=== PATIENT | male | born 1975 | race Caucasian/White ===

== ENCOUNTER 2022-07-06 05:44 | Inpatient (IN) ==
--- NOTE | 2022-06-26 13:19 | Anesthesiology Consultation ---
Date of Service June 26, 2022 Assessment & Plan (1) Encounter for pre-operative examination: - awaiting UA. - COVID screening: Per assessment on 06/26/2022: Travel screen negative, no known COVID-19 positive contacts or current COVID-19 related symptoms in past 2 weeks. Surgeon arranging preop COVID testing, scheduled 07/05/2022. Awaiting results. Chart Review Chart Review: Pending: Refer to Additional Notes / Consult section and Patient seen in Pre Admission Testing Teaching & Discussion Pre-Anesthesia Teaching/Discussion Notes: Instructed NPO after midnight before surgery, except medications with 15 cc of water. Medication instructions provided according to the PAT guidelines. History Surgery Operation Date: 07/07/22 07:45 Proposed Procedures p L2-S1 Decompression Fusion, Spinal Cord Monitoring - Marvin Reeder DO Height/Weight Height: 5 ft 9 in Weight: 110.4 kg Allergies Allergy/AdvReac Type Severity Reaction Status Date / Time No Known Allergies Allergy Verified 06/08/22 08:04 Medications Home Medications Medication Instructions Recorded Confirmed Last Taken No Known Home Medications 06/08/22 06/08/22 Unknown Past Medical History Medical History Back pain DDD (degenerative disc disease) Obesity (BMI 30.0-34.9) Sleep apnea noncompliant with CPAP Patient denies h/o stroke, seizures, heart attack, heart failure, DM, HTN, blood clots or blood transfusions. Exercise / Class Metabolic Activity II 4-5 Yardwork/Stairs/Walk up hill (denies CP or SOB with 1 FOS) Past Family History Family History Other No family history of adverse response to anesthesia Past Surgical History Surgical History History of shoulder surgery Rt History of wisdom tooth extraction Past Anesthesia History No Hx of Anesthesia Complications and No Family Hx of Anesthesia Complications History of PONV No Hx of PONV and No Hx of Motion Sickness Social History Smoking Status: Never smoker Do You Dip or Chew Tobacco: Yes (1 can every 2-3 days-advised) Hx Alcohol Use: Yes Alcohol type: beer alcohol intake frequency: a few times a week Hx Substance Use: No substance use type: does not use Review of Systems Occ reflux, denies change or worsening. Patient denies chest pain, shortness of breath, dyspnea on exertion, fever, chills, cough, wheezing, or palpitations. Physical Exam Vital Signs Vitals BP 132/86 P 70 TEMP 98.4 SP02 99% on RA RESP 18 Physical Full cervical extension range of motion without pain TMD 3.5 finger breadths Mallampati Score 2 Dentition: intact, front upper chipped tooth; denies loose teeth, implants or bridges, caps/crowns Lungs: normal respiratory effort. Clear throughout to auscultation, no adventitious breath sounds Cardiac: regular rate and rhythm, no murmurs noted Carotid arteries: negative bruit bilat Lab Results Anesthesia Preop Results Results Anesthesia Widget: WBC 7.91 K/ul (4.8-10.8) 06/26/22 Hgb 15.6 g/dl (14.0-18.0) 06/26/22 Hct 45.8 % (40.1-51.0) 06/26/22 Plt 204 K/uL (130-400) 06/26/22 Na 139 mmol/L (136-145) 06/26/22 K 4.8 mmol/L (3.5-5.1) 06/26/22 Cl 104 mmol/L (98-107) 06/26/22 CO2 30 mmol/L (21-32) 06/26/22 BUN 17 mg/dl (6-23) 06/26/22 Creat 1.22 mg/dl (0.6-1.4) 06/26/22 Glucose Level 93 mg/dl (70-99(Fasting)) 06/26/22 PT 10.3 Seconds (9.0-12.0) 06/26/22 PTT 26.6 Seconds (21.0-31.0) 06/26/22 INR 1.0 (0.9-1.1) 06/26/22 Blood Type O Positive 06/26/22 Antibody Screen NEGATIVE 06/26/22 Testing Electrocardiogram Date: 06/26/22 NSR, rate 64 bpm Chest X-Ray Date: 06/26/22 No lines and tubes are seen. The cardiomediastinal silhouette is normal. The lungs are clear. No evidence of pleural effusion or pneumothorax. IMPRESSION: No acute chest disease. Echocardiogram Date: 10/16/17 EF 70% Mild cLVH Normal LV wall motion No significant valvular abnormalities Stress Test Date: 10/16/17 Exercise MPHR 62% METS 6 No ischemia, cannot be ruled out at higher HRs
[2022-07-06] MEDS ORDERED: ACETAMINOPHEN 500 MG TAB PO SCH (06:00)
[2022-07-06] MEDS ORDERED: GABAPENTIN 900 MG DOSE PO SCH (06:00)
[2022-07-06] MEDS ORDERED: LR 500ML BOLUS, THEN 15ML/HR IV SCH (06:00)
[2022-07-06] MEDS ORDERED: ceFAZolin 2000MG 2,000 MG/15 ML SYR IV SCH (06:00)
[2022-07-06] MEDS ORDERED: CeleBREX 200 MG CAP PO SCH (06:00)
[2022-07-06] MEDS ORDERED: ATROPINE SULFATE 0.1 MG/ML 10ML SYR IV PRN (06:47)
[2022-07-06] MEDS ORDERED: ePHEDrine sulfate 50 MG/ML AMP IV PRN (06:47)
[2022-07-06] MEDS ORDERED: ONDANSETRON INJ 2 MG/ML 2 ML VIAL IV PRN (06:47)
[2022-07-06] MEDS ORDERED: HYDROmorphone INJ 2 MG/ML SYR/VIAL IV PRN (06:47)
[2022-07-06] MEDS ORDERED: DEXAMETHASONE SOD INJ 4 MG/ML VIAL ONE (07:06)
[2022-07-06] MEDS ORDERED: KETAMINE 50 MG/5 ML SYRINGE ONE (07:06)
[2022-07-06] MEDS ORDERED: fentaNYL citrate 100 MCG/2 ML VIAL ONE (07:06)
[2022-07-06] MEDS ORDERED: ROCURONIUM BROMIDE 10 MG/ML 5 ML VIAL IV ONE ×9 (07:06→08:45)
[2022-07-06] MEDS ORDERED: ONDANSETRON INJ 2 MG/ML 2 ML VIAL ONE (07:06)
[2022-07-06] MEDS ORDERED: LIDOCAINE 2% MPF LOCAL 5 ML VIAL INFIL ONE (07:06)
[2022-07-06] MEDS ORDERED: PROPOFOL IV EMULSION 10 MG/ML 20 ML VIAL IV ONE (07:06)
[2022-07-06] MEDS ORDERED: MIDAZOLAM HCL 1 MG/ML 2ML VIAL ONE (07:06)
[2022-07-06] MEDS ORDERED: REMIFENTANIL HCL 1 MG VIAL ONE (07:09)
[2022-07-06] MEDS ORDERED: ceFAZolin 330 MG/ML 1 GM VIAL ONE (07:12)
[2022-07-06] MEDS ORDERED: BUPIVACAINE/EPINEPHRINE 0.25% 1:200,000 30 ML VIAL ONE (07:12)
[2022-07-06] MEDS ORDERED: GLYCOPYRROLATE 0.2 MG/ML VIAL ONE ×2 (07:16→10:49)
--- NOTE | 2022-07-06 07:30 | History & Physical Bridge Note ---
Date of Service July 06, 2022 History & Physical Bridge Note I have examined the patient, reviewed the History & Physical and in the interval since the performance of the History & Physical I have noted the following changes of clinical significance: no changes noted
--- NOTE | 2022-07-06 07:31 | History & Physical Report ---
Date of Service July 06, 2022 Assessment & Plan (1) Neurogenic claudication due to lumbar spinal stenosis: Plan: L2-S1 decompression and fusion History of Present Illness Chief Complaint: Back and bilateral leg pain Primary Care Provider: Kaye Rosales MD This is a 46-year-old male who presents with back and bilateral leg pain after failing course of nonoperative care is here for surgical invention. Allergies Allergy/AdvReac Type Severity Reaction Status Date / Time No Known Allergies Allergy Verified 07/06/22 06:03 Home Medications Medication Instructions Recorded Confirmed Type No Known Home Medications 06/08/22 06/30/22 History Past Med/Surg History Medical History Back pain DDD (degenerative disc disease) Obesity (BMI 30.0-34.9) Sleep apnea noncompliant with CPAP Surgical History History of shoulder surgery Rt History of wisdom tooth extraction Family History Other No family history of adverse response to anesthesia Social History Smoking Status: Never smoker Second Hand Exposure: Yes; Do You Dip or Chew Tobacco: Yes (1 can every 2-3 days-advised); Tobacco Cessation Education Requested by Patient: No Hx Alcohol Use: Yes Alcohol type: beer Hx Substance Use: No Preferred Language: Samoan Communication Ability: Effective Customer Facilities Supervisor Required: No Beliefs That Will Affect Care: None Current Living Situation: Spouse Feels Safe at Home: Yes Safety Concerns: Feels Safe At This Time Assistive Devices: None Physical Exam Physical Exam: Patient is alert and oriented Heart regular rhythm Lungs clear Results & Data Results & Data ([facility]) Vital Signs (Past 12 Hours) Vital Signs Temp Pulse Resp BP Pulse Ox O2 Del Method 07/06/22 06:11 36.8 C 65 20 152/87 H 98 Room Air
[2022-07-06] MEDS ORDERED: ePHEDrine sulfate 50 MG/ML AMP ONE (08:57)
[2022-07-06] MEDS ORDERED: NEOSTIGMINE METHYLSULFATE 1 MG/ML 10ML VIAL ONE (10:49)
[2022-07-06] MEDS ORDERED: FLOSEAL HEMOSTATIC MATRIX 10ML TOP ONE (11:04)
--- NOTE | 2022-07-06 11:24 | Operative Report ---
Post Operative Report Pre & Post Diagnosis Operation Date: 07/06/22 07:45 Pre-Op Diagnosis: Neurogenic claudication due to lumbar spinal stenosis Post-Op Diagnosis: Neurogenic claudication due to lumbar spinal stenosis I identified the patient and participated in the time-out.: Yes Procedure Operation Date: 07/06/22 07:45 Actual Procedures #1 lumbar decompression bilateral medial facetectomies and foraminotomies L2-L3, L3-L4, L4-L5 and L5-S1. #2 posterior spinal fusion L2-S1. #3 placed posterior segmental instrumentation L2-S1. #4 interbody fusion L3-L4 L4-5 per #5 placement of Spira 11 x 26 mm cage at L3-L4 and 13 x 26 mm cage at L4-5. #6 placement locally harvested morselized autograft in the posterior gutters. #7 placement of I factor in the interbody space and combined with V toss in the posterior gutters. Surgeon Marvin Reeder, DO Cryptographer None Estimated Blood Loss 400 Findings See Below The patient is 5 foot 9 weighing over 110 kg with a BMI in excess of 35. Patient's body habitus did contribute to significant technical difficulty requiring her deepest retractors longer instruments in order to perform his procedure. This had at least 50% increased operative time. Specimens None Indications This is a 46-year-old male who presents above-mentioned diagnosis after failed course of nonoperative care is here for surgical invention. Description of Procedure Patient was met with identified informed consent obtained. Patient was then taken to the operative suite underwent a patient placed in a prone position on the Miguelito table atop the Ramon frame. All bony prominences well-padded eyes inspected to ensure no external pressure placed upon the. This point lumbar spine was prepped and draped in normal sterile fashion. Sharp dissection with the assistance of Bovie cautery was performed down to and exposing the lamina and transverse processes of L3-L4-L5 and the sacral ala bilaterally. From caudal to cephalad fashion complete laminectomy of L5 L4 L3 and L2 was performed including bilateral medial facetectomies and foraminotomies addressing severe spinal stenosis. Pedicle screws then placed L2 L3-L4-L5 and S1 levels bilaterally with assistance of fluoroscopy. By way of a transforaminal approach on the right pleat discectomy of L4-L5 was performed endplates curetted to subcortical bleeding bone and a 13 x 26 mm spiral cage filled with I factor tapped in position. Then proceeded to L2-L3 and again by way of a transfemoral approach and right complete discectomy performed endplates curetted to subcortically bone and a 11 x 26 mm spiral cage filled I factor tapped in position. The rods were then locked in final position bilaterally. The transverse processes of L2-L3 L4-5 and sacral ala burred to subcortical bleeding bone. I factor combined with V toss and locally harvested morselized autograft was then placed in the posterior gutters. 15 round TAJ drain inserted. The incision was then closed with 1 Vicryl the fascia 2-0 Vicryl subcutaneously and 4 Monocryl for final skin closure. Steri-Strip sterile dressings placed. Patient waken taken PACU stable condition. Please note spinal cord monitoring was utilized at the procedure no changes noted. I attest to the content of the Intraoperative Record and any orders documented therein. Any exceptions are noted below.
[2022-07-06] MEDS: fentaNYL citrate 100 MCG/2 ML VIAL IV PRN ×3 (11:44→12:09)
--- NOTE | 2022-07-06 12:09 | Fluoroscopy Report ---
FL lumbar spine 2-3V HISTORY: 46 years-old Male L2-S1 DECOMPRESSION AND FUSION WITH INTERBODY COMPARISON: None TECHNIQUE: 4 spot fluoroscopic views of the lumbar spine were obtained utilizing 47.8 seconds fluoros copy done FINDINGS: Laminectomy with posterior interbody connie and screw fusion hardware is noted extending from L2-S1. Dis cectomy changes at L3-L4, L4-L5 and L5-S1. The hardware appears to be intact. Satisfactory alignment. No unexpected opaque foreign bodies. IMPRESSION: Fluoroscopic assistance as above. ACT 112: Negative or not required by law. The above report was generated using voice recognition software. It may contain grammatical, syntax o r spelling errors. Electronically signed by: Rich Chavez M.D. 07/06/2022 12:07 PM
--- NOTE | 2022-07-06 12:45 | Anesthesiology Progress Note ---
Date of Service July 06, 2022 Anesthesia Post Procedure Vital Signs Vital Signs: Temp Pulse Pulse Resp BP Pulse Ox O2 Del Method 07/06/22 12:30 98.4 F 61 16 124/80 96 Nasal Cannula 07/06/22 12:20 97.9 F 65 16 126/77 95 Nasal Cannula 07/06/22 12:10 66 17 139/79 93 Nasal Cannula 07/06/22 12:00 66 15 128/77 92 Room Air 07/06/22 11:50 74 16 120/85 95 Room Air 07/06/22 11:40 54 L 16 119/63 94 Oxymask 07/06/22 11:33 99.1 F 64 15 118/71 97 Oxymask 07/06/22 06:11 98.2 F 65 20 152/87 H 98 Room Air O2 Flow Rate 07/06/22 12:30 3 07/06/22 12:20 3 07/06/22 12:10 3 07/06/22 12:00 07/06/22 11:50 07/06/22 11:40 11 07/06/22 11:33 11 07/06/22 06:11 Pain Intensity Lower Back: Pain Intensity: 4 Transfer of Care Handoff Completed per policy Notes Mental Status: alert / awake / arousable and participated in evaluation Patient Amnestic to Procedure: Yes Nausea / Vomiting: adequately controlled Pain: adequately controlled Airway Patency, RR, SpO2: stable & adequate BP & HR: stable & adequate Hydration State: stable & adequate Anesthetic Complications: no major complications apparent and Pt Satisfied with anesthetic care
[2022-07-06] MEDS ORDERED: LORazepam 0.5 MG TAB PO PRN (12:51)
[2022-07-06] MEDS ORDERED: bisacodyL 10 MG SUPP PR PRN (12:51)
[2022-07-06] MEDS ORDERED: ACETAMINOPHEN 1,000 MG/100 ML VIAL IV PRN (12:51)
[2022-07-06] MEDS ORDERED: PROMETHAZINE HCL 12.5 MG in SODIUM CHLORIDE 0.9% 50 ML IV PRN (12:51)
[2022-07-06] MEDS ORDERED: METOCLOPRAMIDE HCL INJ 5 MG/ML 2 ML VIAL IV PRN (12:51)
[2022-07-06] MEDS ORDERED: diphenhydrAMINE Capsule 25 MG CAP PO PRN (12:51)
[2022-07-06] MEDS ORDERED: hydrOXYzine HCl 25 MG TAB PO PRN (12:51)
[2022-07-06] MEDS ORDERED: HYDROmorphone INJ 0.5 MG/0.5 ML SYR IV PRN (12:51)
[2022-07-06] MEDS ORDERED: LORazepam 0.5 MG in SYRINGE 0.25 ML IV PRN (12:51)
[2022-07-06] MEDS ORDERED: HYDROmorphone INJ 1 MG/ML SYRINGE IV PRN (12:51)
[2022-07-06] MEDS ORDERED: MAGNESIUM HYDROXIDE SUSP 30 ML UDC PO PRN (12:51)
[2022-07-06] MEDS ORDERED: NALOXONE HCL 0.4 MG/1 ML VIAL/CARP IV PRN (12:51)
[2022-07-06] MEDS ORDERED: SOD PHOSPHATE/SOD BIPHOSPHATE ENEMA 132 ML BTL PR PRN (12:51)
[2022-07-06] MEDS ORDERED: ALUMINUM/MAGNESIUM SUSP 30 ML UDC PO PRN (12:51)
[2022-07-06] MEDS ORDERED: ONDANSETRON 4 MG OD TAB PO PRN (12:51)
[2022-07-06] MEDS ORDERED: FAMOTIDINE 20 MG TAB PO PRN (12:51)
[2022-07-06] MEDS: LACTATED RINGER'S 1,000 ML IV SCH ×2 (13:31→20:18)
[2022-07-06] MEDS: ceFAZolin 2000MG 2,000 MG/15 ML SYR IV SCH (17:28)
[2022-07-06] MEDS: oxyCODONE HCL IR 5 MG TAB (IMMEDIATE RELEASE) PO PRN (17:30)
[2022-07-06] MEDS: traMADol HCL 50 MG TABLET PO PRN (21:15)
[2022-07-06] MEDS: DOCUSATE SODIUM/SENNA 50/8.6MG TAB PO SCH (21:15)
[2022-07-07] MEDS: ceFAZolin 2000MG 2,000 MG/15 ML SYR IV SCH (01:43)
[2022-07-07] MEDS: LACTATED RINGER'S 1,000 ML IV SCH (02:39)
[2022-07-07] MEDS: oxyCODONE HCL IR 5 MG TAB (IMMEDIATE RELEASE) PO PRN ×2 (02:44→09:18)
[2022-07-07] MEDS: POLYETHYLENE (MIRALAX) 17 GM PACK PO SCH ×3 (05:39→17:27)
[2022-07-07] MEDS: traMADol HCL 50 MG TABLET PO PRN ×2 (05:49→12:25)
[2022-07-07 06:28] LABS: Basophils # (auto) 0.02 K/uL (0-0.2); Basophils % (auto) 0.1 %; Hematocrit (blood only) 37.7 % (40.1-51.0); Hemoglobin 12.5 g/dl (14.0-18.0); Immature Granulocytes # (auto) 0.12 K/uL (0.00-0.02); Immature Granulocytes % (auto) 0.7 %; Lymphocytes # (auto) 1.24 K/uL (1.2-3.4); Mean Corpuscular Hemoglobin 30.3 pg (25.0-34.0); Mean Corpuscular Hgb Conc 33.2 g/dL (32.0-36.0); Mean Corpuscular Volume 91.5 fL (80.0-100.0); Mean Platelet Volume 8.3 fL (9.4-12.4); Monocytes # (auto) 1.19 K/uL (0.24-0.82); Monocytes % (auto) 6.8 %; Neutrophils # (auto) 15.02 K/uL (1.4-6.5); Neutrophils % (auto) 85.4 %; Platelet Count 211 K/uL (130-400); RDW Coefficient of Variation 13.1 % (11.5-14.5); RDW Standard Deviation 43.2 fL (36.4-46.3); Red Blood Count 4.12 M/uL (4.63-6.08); White Blood Count 17.59 K/ul (4.8-10.8)
[2022-07-07 07:16] LABS: BUN Creatinine Ratio 15.2 (10-20); Calcium 8.6 mg/dl (8.5-10.1); Est GFR (African American) 92.1 ml/min; Est GFR (Non-African American) 79.5 ml/min; Potassium 4.3 mmol/L (3.5-5.1)
--- NOTE | 2022-07-07 08:08 | Orthopedic Progress Note ---
Date of Service July 07, 2022 Assessment & Plan (1) Neurogenic claudication due to lumbar spinal stenosis: Plan: At this time I have removed his drain and change his dressing. We will maintain bedrest he may sit up to eat today. He has bathroom privileges if he has a bowel movement. We will assess his progress tomorrow most likely initiate physical therapy if he is stable. Again ongoing with slow progress to activity in light of the very patulous dura at the 5 1 level. Admission and Anticipated Discharge Date Admission Date: July 06, 2022 Subjective Back pain is controlled leg pain improved. Denies any nausea or vomiting or headaches. Physical Exam Physical Exam: On exam he has good strength testing appears comfortable. Results & Data ([facility]) Vital Signs (Past 12 Hours) Vital Signs Temp Pulse Resp BP Pulse Ox O2 Del Method 07/07/22 07:14 36.4 C L 62 14 119/68 97 Room Air 07/07/22 03:15 36.3 C L 56 L 16 128/74 95 Room Air 07/06/22 22:44 36.6 C 63 16 129/71 94 Room Air
[2022-07-07] MEDS: dexAMETHasone 6 MG in SYRINGE 0 ML IV SCH (09:13)
[2022-07-07] MEDS: ACETAMINOPHEN 500 MG TAB PO PRN (12:25)
[2022-07-07] MEDS: DOCUSATE SODIUM/SENNA 50/8.6MG TAB PO SCH (19:58)
[2022-07-07] MEDS: ONDANSETRON INJ 2 MG/ML 2 ML VIAL IV PRN (22:31)
[2022-07-08] MEDS: SODIUM CHLORIDE 0.9% 1000ML 1,000 ML IV SCH ×6 (02:00→22:58)
[2022-07-08] MEDS: dexAMETHasone 6 MG in SYRINGE 0 ML IV SCH (08:12)
--- NOTE | 2022-07-08 08:21 | Orthopedic Progress Note ---
Date of Service July 08, 2022 Assessment & Plan (1) Neurogenic claudication due to lumbar spinal stenosis: Plan: At this time we will initiate physical therapy discontinue his Turk. We will put him on a clear liquid diet for now advance as tolerated. Admission and Anticipated Discharge Date Admission Date: July 06, 2022 Subjective Patient did have a bowel movement this morning. He states his abdominal cramping has somewhat improved. Notes positive flatus. Denies any headaches leg pain. He states his back pain is well controlled. He is ambulating with a walker around the room comfortably. Physical Exam Physical Exam: On exam he is standing and walking with a walker. His dressing is intact. There is no notable swelling in the lumbar spine. Is nontender to palpation. Results & Data ([facility]) Vital Signs (Past 12 Hours) Vital Signs Temp Pulse Resp BP Pulse Ox O2 Del Method 07/08/22 00:04 36.6 C 67 18 161/89 H 96 Room Air
[2022-07-08] MEDS: oxyCODONE HCL IR 5 MG TAB (IMMEDIATE RELEASE) PO PRN (14:28)
[2022-07-08] MEDS: ONDANSETRON INJ 2 MG/ML 2 ML VIAL IV PRN (20:58)
[2022-07-08] MEDS: DOCUSATE SODIUM/SENNA 50/8.6MG TAB PO SCH (20:58)
[2022-07-08] MEDS: traMADol HCL 50 MG TABLET PO PRN (22:58)
[2022-07-09] MEDS: SODIUM CHLORIDE 0.9% 1000ML 1,000 ML IV SCH (04:10)
[2022-07-09] MEDS: DOCUSATE SODIUM/SENNA 50/8.6MG TAB PO SCH ×2 (08:02→19:37)
[2022-07-09] MEDS: dexAMETHasone 6 MG in SYRINGE 0 ML IV SCH (08:02)
--- NOTE | 2022-07-09 10:10 | Orthopedic Progress Note ---
Date of Service July 09, 2022 Assessment & Plan (1) Neurogenic claudication due to lumbar spinal stenosis: Plan: At this time continue physical therapy. I encouraged him to ambulate as tolerated today to help facilitate bowel function. We will maintain a light di et. I have discontinued his IV fluids. Admission and Anticipated Discharge Date Admission Date: July 06, 2022 Subjective Patient's back pain is controlled leg pain improved. He is tolerating physical therapy. He is still struggling with GI upset and cramping. Has not had a bowel movement yet today. Physical Exam Physical Exam: Seems to get strength testing lower extremities. He is able to get up out of bed on his own. Results & Data ([facility]) Vital Signs (Past 12 Hours) Vital Signs Temp Pulse Resp BP Pulse Ox O2 Del Method 07/09/22 07:24 37.1 C 70 16 160/95 H 96 Room Air
[2022-07-09] MEDS: ACETAMINOPHEN 500 MG TAB PO PRN (15:47)
[2022-07-09] MEDS: oxyCODONE HCL IR 5 MG TAB (IMMEDIATE RELEASE) PO PRN ×2 (15:48→20:46)
[2022-07-10] MEDS: ACETAMINOPHEN 500 MG TAB PO PRN (07:29)
--- NOTE | 2022-07-10 10:33 | Discharge Summary ---
Date of Service July 10, 2022 Admission HPI Per Admitting Provider This is a 46-year-old male who presents with back and bilateral leg pain after failing course of nonoperative care is here for surgical invention. Principal Diagnosis Lumbar spinal stenosis with neurogenic claudication Discharge Data Allergies Allergy/AdvReac Type Severity Reaction Status Date / Time No Known Allergies Allergy Verified 07/06/22 06:03 Procedures Performed Operation Date: 07/06/22 07:45 Actual Procedures p L2-S1 Decompression Fusion with Spinal Cord Monitoring - Marvin Reeder DO Ordered Studies 07/06/22 07:15 [place] lumbar spine 2-3V Routine Hospital Course (1) Neurogenic claudication due to lumbar spinal stenosis: Patient underwent multilevel lumbar decompression fusion tolerated this well was taken to orthopedic for postoperative. Postop day 1 we stuck with bed rest throughout the day initiated activity the following day. He struggled with s ignificant postoperative obstipation and we had to initiate an aggressive bowel regiment. He tolerated this well progressed appropriately throughout his stay. Up and ambulating with physical therapy. Excellent strength testing. Bowels working well on discharge today and separately discharged home. Discharge orders instructions from the chart for further review. Total Time Total Time Spent Total Time Spent (In Minutes): 20 minutes Discharge Plan Discharge Items Patient Disposition: Home - Self-Care Reason For Visit: POSTOP Discharge Diagnosis: Lumbar spinal stenosis with neurogenic claudication Activity: As commented below Non-emergency contact: Primary Care Provider Call non-emergency contact if: you have any medication questions Follow-up/Referrals: Kaye Rosales MD [Primary Care Provider] - Diet: Regular Addtl Attending Provider Instructions: ACTIVITY RECOMMENDATIONS: SELF CARE INSTRUCTIONS AFTER THORACIC/LUMBAR FUSIONS 1. You may walk to your tolerance. It is good exercise for your legs and back. Expect some back and intermittent leg aches and pains. 2. You may perform "counter-top" level activities (make a sandwich, lakisha with a project, etc.). 3. No bending or lifting of more than 10 pounds or back twisting of any nature (roll like a log when turning in bed). 4. You may ride in a car for 20-30 minutes at a time. No driving until after your first visit with your doctor. 5. Frequent changes of position and restricting sitting to 30 minutes at a time will help limit the amount of back spasms and stiffness you may experience. 6. You may discontinue the use of ambulatory aids (cane, crutches, etc.) once your strength and confidence allow. 7. You may enrobing machine operator the shower and let water strike your incision when you arrive home at least once daily. Do not take a tub bath, sit in a hot tub or go into a swimming pool until after your first recheck in the office. SPECIAL CARE INSTRUCTIONS: VERY IMPORTANT TO READ AND REVIEW A. Your surgical incision has been closed with a cosmetic suture under the skin that will dissolve in about 6 weeks. In 14 days, you can use a pair of clean scissors and cut the suture that is left outside of the skin at the ends of your incision. 1. The small skin tapes can be removed 7 days after surgery if they have not fallen off by that point. 2. You may keep the wound open to air as much as possible to promote healing after post-op day number 5 unless told otherwise by your doctor. 3. If you think the wound looks like it is becoming infected (redness or worsening drainage) and/or you are experiencing fever, chill or worsening back pain and muscle spasms, contact the office so that we may evaluate you as soon as possible. B. Complications are uncommon, but please contact us if you have any signs or symptoms of: 1. wound infection (fever higher than 102.5 degrees F, redness, separation of wound, drainage, or increasing pain from the incision) 2. blood clots in legs (pain, swelling, redness and warmth in legs) 3. urinary tract infection (fever higher than 102.5 degrees F, burning upon urination or increased frequency of urination) 4. nerve problems (inability to walk on your toes or heels, numbness, loss of bowel or bladder control) 5. any other symptoms that concern you C. Please call the office at if you have any concerns or questions about your operation or recovery. D. No smoking! Smoking drastically decreases the chance of a solid fusion. E. Do not take any anti-inflammatory medications (Indocin, Advil, Motrin, Aspirin, Naprosyn, etc.) as these may inhibit the chance of a solid fusion. T ylenol is okay to take for pain. MANAGING PAIN AFTER SPINAL SURGERY 1. Narcotic medication is intended for short-term use and will be provided for surgical pain. Surgical pain usually lasts for a period of 4-6 weeks. Narcotic medication includes Percocet, Vicodin, Darvocet, Tylenol #3 or Lortab. 2. Longer-term pain is more appropriately treated with non-narcotic medication such as Tylenol ES. 3. Muscle spasm is not appropriately treated with narcotics. Muscle relaxers such as Soma, Flexeril or Skelaxin can be used along with Tylenol ES. 4. Remember that we all live with some "aches and pains". This is not unusual or uncommon after an injury or as we get older. a. Back pain is expected and may include muscle spasms for 4 to 6 weeks after surgery. The pain should gradually improve. If the pain worsens for no apparent reason, please contact the office. b. Intermittent leg pain may also be experienced and should not be concerned about unless it worsens for no apparent reason. If so, please contact the office. 5. We will provide appropriate medication within the normal guidelines of their prescribed use. We will also be very cautious and aware of potential abuse and extended duration of patients' medication needs. a. Pain medications are for your comfort and to assist with sleep and rest so that the tissue can heal. They are not provided in order to return to normal activity and should not be used through the day. To do so or worsening pain at night can result from ongoing tissue damage and development of tolerance to the prescribed medicine. 6. Please allow 2-3 days to process refills. Prescriptions will not be mailed but must be picked up at the office. FOLLOW UP VISIT: Keep your scheduled follow-up appointment. Any questions, please call the office at . Pending Studies at Discharge: No Stand-Alone Forms: [facility], Smoking Cessation Medications and DC Order Prescriptions: New oxycodone 5 mg tablet 5 mg PO Q6H PRN (Reason: pain, severe) Qty: 30 0RF tramadol 50 mg tablet 50 mg PO Q6H PRN (Reason: pain, moderate) Qty: 30 0RF Discharge Orders: Discharge Order (Routine); Ordered 07/10/22 Ordered By: Marvin Reeedr Admission Data Admit Date/Time: 07/06/22 11:28 Attending Provider: Marvin Reeder Admit Provider: Marvin Reeder Primary Care Provider: Kaye Rosales
[2022-07-10] MEDS: oxyCODONE HCL IR 5 MG TAB (IMMEDIATE RELEASE) PO PRN (11:37)
== END 2022-07-10 12:09 | disposition home or self-care (01) | DRG 455 ==
LOC: ASU 05:44 → 3E 11:28
DX: G47.30 Sleep apnea, unspecified; M48.062 Spinal stenosis, lumbar region with neurogenic claudication; E66.9 Obesity, unspecified; Z68.35 Body mass index [BMI] 35.0-35.9, adult